=== PATIENT | female | born 1985 | race Two or more races ===

== ENCOUNTER 2020-05-16 11:22 | Outpatient (CLI) | payer OTHER | END 2020-05-16 11:30 | disposition home or self-care (01) | LOC: RX STUDY 11:22 | PROVIDERS: ATTEND Obstetrics & Gynecology Reproductive Endocrinology | DX: N93.0 Postcoital and contact bleeding (principal) ==

== ENCOUNTER 2024-10-05 09:18 | Outpatient (CLI) | payer OTHER | END 2024-10-05 09:19 | disposition home or self-care (01) | LOC: PRENATAL 09:18 | PROVIDERS: ATTEND Obstetrics & Gynecology Maternal & Fetal Medicine | DX: O44.00 Complete placenta previa NOS or without hemorrhage, unspecified trimester (principal); O09.519 Supervision of elderly primigravida, unspecified trimester; Z3A.19 19 weeks gestation of pregnancy ==

== ENCOUNTER → 2024-12-04 09:07 | Outpatient (CLI) | payer OTHER | END | disposition home or self-care (01) | LOC: PRENATAL 09:07 | PROVIDERS: ATTEND Obstetrics & Gynecology Maternal & Fetal Medicine | DX: O26.849 Uterine size-date discrepancy, unspecified trimester (principal); O09.519 Supervision of elderly primigravida, unspecified trimester; Z3A.27 27 weeks gestation of pregnancy ==

== ENCOUNTER 2025-01-16 07:30 | Outpatient (CLI) | payer OTHER | END 2025-01-16 07:35 | disposition home or self-care (01) | LOC: PRENATAL 07:30 | PROVIDERS: ATTEND Obstetrics & Gynecology Maternal & Fetal Medicine | DX: O26.849 Uterine size-date discrepancy, unspecified trimester (principal); O36.8199 Decreased fetal movements, unspecified trimester, other fetus; O09.519 Supervision of elderly primigravida, unspecified trimester; Z3A.33 33 weeks gestation of pregnancy ==

== ENCOUNTER 2025-02-14 17:45 | Inpatient (IN) | payer OTHER ==
[~2025-02-14] VITALS: Ht 160 cm; Wt 95.3 kg
[2025-02-14] MEDS ORDERED: BENADRYL25 MG PO (18:06)
[2025-02-14] MEDS ORDERED: BENADRYL ALLERG25 MG PO (18:06)
[2025-02-14] MEDS ORDERED: PRENATAL VITAM1 EAC4 (18:07)
[2025-02-14 18:11] VITALS: BP 140/80
[2025-02-14] MEDS ORDERED: MISOPROSTOL 25 MCG TABLET ONE (18:31)
[2025-02-14 18:41] LABS: PH,URINE 6.5 (5.0-8.0); URINE APPEARANCE Clear; URINE BILIRRUBIN Negative (NEGATIVE); URINE BLOOD Negative; URINE COLOR Yellow; URINE GLUCOSE Negative (NEGATIVE); URINE KETONE Trace (NEGATIVE); URINE LEUKOCYTE Negative; URINE NITRATE Negative; URINE PROTEIN Trace (NEGATIVE)
[2025-02-14 18:43] LABS: BASO % 0.2 % (0.1-1.2); EOS # 0.25 (0.04-0.54); EOS % 2.3 % (0.7-7.0); HEMATOCRIT 34.6 % (34.1-44.9); HEMOGLOBIN 11.7 g/dL (11.2-15.7); LYMPH # 1.92 (1.18-3.74); LYMPH % 17.5 % (19.3-53.1); MEAN CORPUSCULAR HEMOGLOBIN 30.9 pg (25.6-32.2); MONO # 0.67 (0.24-0.82); MONO % 6.1 % (4.7-12.5); NEUT # 8.04 (1.56-6.13); NEUT % 73.1 % (34.0-71.1); PLATELET COUNT 332 K/uL (163-369); RED BLOOD COUNT 3.79 M/uL (3.93-5.22); RED CELL DISTRIBUTION WIDTH 14.3 % (11.6-14.4)
[2025-02-14 18:45] LABS: URINE BACTERIA 1277.6 uL (0.0-1933); URINE WBC 22.6 uL (0.0-23.2)
[2025-02-14 18:52] LABS: URINE CAST 0.14 uL (0.0-1.40)
[2025-02-14 18:58] LABS: INR < 0.93; PARTIAL THROMBOPLASTIN TIME 22.6 SECONDS (22.0-34.0); PROTHROMBIN TIME 10.1 SECONDS (9.0-11.5)
[2025-02-14] MEDS ORDERED: MISOPROSTOL 25 MCG TABLET VAG NR (19:00)
[2025-02-14] MEDS ORDERED: hydrOXYzine PAMOATE 50 MG CAPSULE PO PRN (19:00)
[2025-02-14 19:02] LABS: BILIRUBIN TOTAL 0.18 mg/dL (0.3-1.2); CALCIUM 9.1 mg/dL (8.5-10.1); CREATININE SERUM 0.56 mg/dL (0.55-1.02); GFR 119.3; GLOBULINA 3.7 G/DL (2.4-3.5); POTASSIUM 4.8 mEq/L (3.5-5.1); TOTAL PROTEIN 6.7 gm/dL (6.4-8.2)
[2025-02-14 23:18] VITALS: BP 130/85
[2025-02-15] VITALS (10 sets, daily range): BP systolic 113–141; BP diastolic 68–89
[2025-02-15] MEDS ORDERED: OXYTOCIN 20 UNITS/500ML RL PIGGYBAG IV ONE (07:10)
[2025-02-15] MEDS ORDERED: OXYTOCIN 500 ML IV SCH (07:30)
[2025-02-15] MEDS ORDERED: MORPHINE SULFATE 4 MG/ML CARTRIDGE IV ONE (09:00)
[2025-02-15] MEDS ORDERED: OXYTOCIN 20 UNITS/1000ML RL PIGGYBAG IV ONE (12:59)
[2025-02-15] MEDS ORDERED: CHLORHEXIDINE GLUCONATE 120 ML BOTTLE TOP ONE (12:59)
[2025-02-15] MEDS ORDERED: LIDOCAINE HCL 1% 10ML VIAL ONE ×2 (12:59→14:02)
[2025-02-15] MEDS ORDERED: ERYTHROMYCIN BASE OPHT 1GM EACH TUBE OP ONE ×2 (12:59→15:15)
[2025-02-15] MEDS ORDERED: CHLORHEXIDINE GLUCONATE 120 ML BOTTLE TOP SCH (14:45)
[2025-02-15] MEDS ORDERED: ACETAMINOPHEN WITH CODEINE 1 UDTAB TABLET PO PRN (14:45)
[2025-02-15] MEDS ORDERED: OXYTOCIN 1,000 ML IV SCH (14:45)
[2025-02-15] MEDS ORDERED: LIDOCAINE HCL 1% 10ML VIAL IJ ONE (15:15)
[2025-02-16 01:05] VITALS: BP 120/68
[2025-02-16] MEDS ORDERED: FF) RHO(D) IMMUNE GLOBULIN (POM) IM ONE (09:00)
[2025-02-16 09:56] VITALS: BP 136/86
[2025-02-16] MEDS ORDERED: BENZOCAINE/MENTHOL 90 ML BOTTLE TOP SCH ×2 (10:00→12:00)
[2025-02-16 16:29] VITALS: BP 121/82
[2025-02-17 01:11] VITALS: BP 116/72
[2025-02-17 08:00] VITALS: BP 133/84
== END 2025-02-17 16:20 | disposition home or self-care (01) | DRG 807 ==
LOC: LDR 17:45 → OB/GYN 02-15 20:03
PROVIDERS: Obstetrics & Gynecology; ADMIT Obstetrics & Gynecology; ATTEND Obstetrics & Gynecology
PROC: 4A1HXCZ Monitoring of Products of Conception, Cardiac Rate, External Approach (ICD-10-PCS; 2025-02-14)
PROC: 3E0P7VZ Introduction of Hormone into Female Reproductive, Via Natural or Artificial Opening (ICD-10-PCS; 2025-02-14)
PROC: 10E0XZZ Delivery of Products of Conception, External Approach (ICD-10-PCS; principal; 2025-02-15)
PROC: 3E033VJ Introduction of Other Hormone into Peripheral Vein, Percutaneous Approach (ICD-10-PCS; 2025-02-15)
DX: O13.4 Gestational [pregnancy-induced] hypertension without significant proteinuria, complicating childbirth (principal); Z37.0 Single live birth; Z3A.38 38 weeks gestation of pregnancy